=== PATIENT | male | born 1990 | race Caucasian/White ===

== ENCOUNTER 2024-02-16 13:24 | Emergency (ER) | payer OTHER ==
[~2024-02-16] VITALS: Ht 175.3 cm; Wt 90.7 kg
[2024-02-16] MEDS ORDERED: LIDOCAINE 1% INJ 50 ML MDV IJ ONE (14:39)
[2024-02-16 16:31] VITALS: BP 131/84; TEMP 97.9; O2SAT 98
== END 2024-02-16 16:31 | disposition home or self-care (01) ==
LOC: ER 14:05
DX: S61.511A Laceration without foreign body of right wrist, initial encounter (principal); Z87.19 Personal history of other diseases of the digestive system; W26.8XXA Contact with other sharp object(s), not elsewhere classified, initial encounter; Y93.89 Activity, other specified; Y92.89 Other specified places as the place of occurrence of the external cause; Y99.8 Other external cause status
CPT/HCPCS: 99282; 12001; J3490; A6403